=== PATIENT | male | born 1965 | race Caucasian/White ===

== ENCOUNTER 2020-10-11 14:45 | Emergency (ER) | payer SELFPAY ==
[~2020-10-11] VITALS: Ht 177.8 cm; Wt 69.9 kg
--- NOTE | 2020-10-11 16:14 | NUR ---
director compliance: pt rom lobby to room 43
--- NOTE | 2020-10-11 16:25 | NUR ---
PT C/O IMPACTED EARS. PT EXPERIENCING HEARING LOSS, DIZZINESS, TROUBLE SLEEPING, AND TINNITUS. PT HAS BEEN GETTING DIZZY AT WORK AND WAS TOLD HE CAN'T WORK UNTIL HE GETS HIS EARS CLEANED. PT NORMALLY CLEANS HIS EARS WITH PEROXIDE BUT PT HASN'T BEEN SUCCESSFUL CLEANING THEM OUT ON HIS OWN. PT HAS BEEN THROUGH A SIMILAR EPISODE IN 2002.
[2020-10-11] MEDS ORDERED: DOCUSATE 50 MG/5 ML, 10ML UDC ONE (17:26)
[2020-10-11] MEDS ORDERED: DOCUSATE 50 MG/5 ML ORAL SOL PO ONE (17:30)
--- NOTE | 2020-10-11 17:57 | NUR ---
TECH STARTING IRRIGATION
--- NOTE | 2020-10-11 18:36 | NUR ---
LINO COMPLETED EAR IRRIGATION.
[2020-10-11 18:39] VITALS: BP 126/83
--- NOTE | 2020-10-11 19:00 | NUR ---
bedside report received from divya rn, pt care transferred at this time. pt resting on gurney, nad, appears comfortable, denies additional needs at this time. provided water for comfort, chart up for recheck, wctm.
== END 2020-10-11 19:19 | disposition home or self-care (01) ==
LOC: ED 15:30
DX: H61.23 Impacted cerumen, bilateral (principal); R42 Dizziness and giddiness
CPT/HCPCS: 69209; 99282